=== PATIENT | female | born 1990 | race Caucasian/White ===

== ENCOUNTER 2019-04-22 14:18 | Inpatient (IN) | payer BC, OTHER ==
[2019-04-22 15:41] VITALS: BMI 35.0
[2019-04-22] MEDS ORDERED: NS / Oxytocin 40 units/1000ml 1,000 ML IV PRN (17:06)
[2019-04-22] MEDS ORDERED: Ondansetron PF 4 MG/2 ML Vial IVP PRN (17:06)
[2019-04-22] MEDS ORDERED: Lidocaine 1% (PF) 30 ML VIAL SC PRN (17:06)
[2019-04-22] MEDS ORDERED: hydrALAZINE 20 MG/ML VIAL SLOW IVP PRN (17:06)
[2019-04-22] MEDS ORDERED: Promethazine HCl 25 MG/ML VIAL IM PRN (17:06)
[2019-04-22] MEDS ORDERED: Ibuprofen 800 MG TAB PO PRN (17:06)
[2019-04-22] MEDS ORDERED: Carboprost 250 MCG/ML AMP IM PRN (17:06)
[2019-04-22] MEDS ORDERED: HYDROcodone/Acetaminophen 5/325 mg Tablet PO PRN ×2 (17:06)
[2019-04-22] MEDS ORDERED: Diphenoxylate HCl/Atropine Tablet PO PRN ×2 (17:06)
[2019-04-22 17:40] LABS: Hemoglobin 13.8 g/dL (12.0-16.0); Mean Corpuscular HGB CONC 33.7 g/dL (32.0-36.0); Mean Corpuscular Hemoglobin 30.2 pg (27.0-31.0); Mean Corpuscular Volume 89.4 fL (78.0-98.0); Mean Platelet Volume 9.5 fL (7.4-10.4); Platelet Count 187 thou/uL (130-400); RBC Distribution Width 13.6 % (11.5-14.5); Red Blood Cell (RBC) Count 4.58 mill/uL (4.20-5.40)
[2019-04-22 17:53] LABS: ALT (SGPT) 19 U/L (8-55); AST (SGOT) 16 U/L (5-34); Albumin 3.4 g/dL (3.5-5.0); Alkaline Phosphatase 142 U/L (40-150); Anion Gap 12 mmol/L (10-20); BUN (Urea Nitrogen) 7 mg/dL (7.0-18.7); Bilirubin, Total 0.6 mg/dL (0.2-1.2); Calc. Creatinine Clearance 175 mL/min (70-130); Calcium 9.1 mg/dL (7.8-10.44); Carbon Dioxide 21 mmol/L (22-29); Chloride 107 mmol/L (98-107); Estimated GFR-MDRD Greater than 90; Globulin 2.2 g/dL (2.4-3.5); Glucose 79 mg/dL (70-105); Potassium 4.2 mmol/L (3.5-5.1); Protein, Total 5.6 g/dL (6.0-8.3); Sodium 136 mmol/L (136-145)
[2019-04-22 18:11] LABS: HBSAg Index 0.14 S/CO (0-0.99); Hep B Surf Ag Non-Reactive S/CO (NonReactive)
[2019-04-22 18:19] LABS: Syphilis Antibody Nonreactive (Nonreactive); Syphilis Antibody Index 0.03 S/CO (<1.00 Non-Reactive)
[2019-04-22] MEDS: Lactated Ringer's 1,000 ML IV SCH ×2 (19:06→23:15)
[2019-04-22] MEDS: Misoprostol 100 MCG TAB PO SCH ×2 (20:16→20:17)
[2019-04-22] MEDS ORDERED: Bupivacaine PF 0.5% 30 ML VIAL ONE (23:00)
[2019-04-22] MEDS ORDERED: Bupivacaine/Epinephrine 0.25% 30 ML VIAL ONE (23:00)
[2019-04-23] MEDS: Misoprostol 100 MCG TAB PO SCH ×3 (00:10→14:29)
[2019-04-23] MEDS ORDERED: Lidocaine 1.5%/Epinephrine 1:200,000 5 ML AMPUL IJ ONE (06:07)
[2019-04-23] MEDS ORDERED: Fentanyl 4 mcg/Bup 0.1% Cadd 100 ML ONE ×3 (06:07→20:18)
[2019-04-23] MEDS ORDERED: Fentanyl 100 MCG/2 ML VIAL ONE ×2 (06:16→21:26)
[2019-04-23] MEDS: Lactated Ringer's 1,000 ML IV SCH ×2 (06:25→14:19)
[2019-04-23] MEDS ORDERED: Lactated Ringer's 500 ML IV PRN (06:58)
[2019-04-23] MEDS ORDERED: ePHEDrine/0.9% NaCl/PF SYRINGE 50 mg/10 ml SLOW IVP PRN (06:58)
[2019-04-23] MEDS ORDERED: Ondansetron PF 4 MG/2 ML Vial IVP PRN ×2 (06:58→22:20)
[2019-04-23] MEDS ORDERED: Acetaminophen 325 MG TAB PO PRN (06:58)
[2019-04-23] MEDS ORDERED: Naloxone HCl 0.4 mg/ml Vial IVP PRN ×4 (06:58→22:20)
[2019-04-23] MEDS ORDERED: diphenhydrAMINE 50 MG/ML VIAL IVP PRN ×2 (06:58→22:20)
[2019-04-23] MEDS ORDERED: Promethazine HCl 25 MG/ML VIAL IM PRN ×2 (06:58→22:20)
[2019-04-23] MEDS ORDERED: Communication Order-Pharmacy FS SCH ×2 (07:00→22:30)
[2019-04-23] MEDS ORDERED: Fentanyl 4 mcg/Bupivacaine 0.1% Cassette 100 ML EPIDURAL SCH (07:00)
--- NOTE | 2019-04-23 07:14 | PDOC.LDHP ---
Labor and Delivery H&P Chief complaint: scheduled induction HPI: Patient presented at office for routine care. her BP was noted at 140/ 90 and patient was reporting a headache. Her cervical exam was unfavorable for IOL, so 5 diliapan were placed into the cervical OS using ring forceps and a tenaculum. Pt tolerated well. She was then instructed to go to L&D for IOL due to suspected GHTN. Current gestational age (weeks): 40 (and 3 days) Due date: 04/19/19 Dating criteria: last menstrual period (and verified with 1st trimester US) Grav: 1 Para: 0 Current complications: other ( mediated autoimmune rash. Syncope - cleared by cardiology with halter monitor or echo Shingles - resolved as on 03/12/19) Abnormal US findings: No Current medications: pre-vandana vitamins Previous surgical history: other (Tonsillectomy, mouth surgery) Allergies/Adverse Reactions: Allergies Allergy/AdvReac Type Severity Reaction Status Date / Time No Known Allergies Allergy Verified 04/22/19 15:39 Social history: none - Physical Exam Vital signs reviewed and normal: yes General: NAD Heart: RRR Lungs: nonlabored breathing Abdomen: gravid Extremeties: pitting edema FHT: category 1 - Vaginal Exam cm dilated: 3 Effacement: 50% Station: -3 - OB Labs Blood type: A RH: positive Antibody Screen: negative HIV: negative RPR: negative HEPSAg: negative 1 hour GCT: negative GBS: negative Urine drug screen: negative Rubella: immune - Assessment L&D Assessment: medically indicated induction (for suspected GHTN) - Plan Plan: admit to L&D, cervical ripening (with oral cytotec 50mcg Q4hrs)
[2019-04-23] MEDS ORDERED: NS w/ Oxytocin 10 units 500 ML ONE (07:41)
[2019-04-23] MEDS ORDERED: NS w/ Oxytocin 10 units 500 ML IV SCH (08:15)
--- NOTE | 2019-04-23 08:16 | PDOC.LDPN ---
Labor & Delivery Progress Note - Subjective Subjective: comfortable (with epidural) - Objective Vital signs reviewed and normal: yes General: resting Uterine fundus: non tender Dilation: 3 Effacement: 50% Station: -2 FHT: category 1 Corwith contractions every: 3-5 - Assessment (1) Elective induction of labor planned Code(s): ADD1900 - Current Visit: Yes Status: Acute Plan: labor augmentation, pitocin for augmentation
[2019-04-23] MEDS ORDERED: Ondansetron PF 4 MG/2 ML Vial ONE ×2 (09:31→21:27)
[2019-04-23] MEDS ORDERED: Ketorolac Tromethamine 30 MG/ML VIAL ONE ×2 (09:31→21:27)
[2019-04-23] MEDS ORDERED: Dexamethasone 20 MG/5 ML VIAL ONE (09:31)
[2019-04-23] MEDS ORDERED: Lidocaine 1% (PF) 30 ML VIAL ONE (12:43)
[2019-04-23] MEDS ORDERED: NS / Oxytocin 40 units/1000ml 1,000 ML ONE (12:43)
[2019-04-23] MEDS ORDERED: Bicitra 30 ML UDCUP ONE (21:11)
--- NOTE | 2019-04-23 21:22 | PDOC.EVN ---
Event Note - Event Note Event Note: [facility] Preop CS note: Asked to eval the patient in LDR2 for prolonged second stage, arrest of descent. Pushing for 3 hrs. REMINGTON in use. I examined the patient myself: Exam C/C/+1 with some caput at +2 The head is firmly applied against the pubic symphisis (narrow pubic arch). Due to station at +1 and narow pubic arc, I do not feel a vaccumm attempt is the safest at this time. I reviewed need for C-sectio with her and her family. We will proceed with a primary CS for the above reasons. Anesthesia called and here. DX: Prolonged second stage Arrest of descent Narrow opubic arch (deeply impacted head)
[2019-04-23] MEDS ORDERED: ePHEDrine/0.9% NaCl/PF SYRINGE 50 mg/10 ml ONE (21:27)
[2019-04-23] MEDS ORDERED: Oxytocin 10 UNITS/ML VIAL ONE ×2 (21:27→22:16)
[2019-04-23] MEDS ORDERED: Dexamethasone 4 mg/ml Vial ONE (21:27)
[2019-04-23] MEDS ORDERED: PHENYLEPHRINE-NS 100 MCG/ML 10 ML SYRINGE ONE (21:28)
[2019-04-23] MEDS ORDERED: Azithromycin 500 MG VIAL ONE (21:29)
[2019-04-23] MEDS ORDERED: MORPHINE 5 MG/10 ML PF VIAL ONE (22:05)
[2019-04-23] MEDS ORDERED: Midazolam HCl 2 mg/2 ml Vial ONE (22:08)
[2019-04-23] MEDS ORDERED: Ketorolac Tromethamine 30 MG/ML VIAL IVP PRN (22:20)
[2019-04-23] MEDS ORDERED: L&D-Morphine 4 MG/ML VIAL SLOW IVP PRN (22:20)
[2019-04-23] MEDS ORDERED: Ondansetron HCl/PF 4 MG/2 ML Vial IVP PRN (22:20)
[2019-04-23] MEDS ORDERED: HYDROmorphone 2 MG/ML VIAL SLOW IVP PRN (22:20)
[2019-04-23] MEDS ORDERED: Promethazine HCl 25 MG SUPP PR PRN (22:20)
[2019-04-23] MEDS ORDERED: Naloxone HCl 0.4 mg/ml Vial IV PRN (22:20)
[2019-04-23] MEDS ORDERED: Meperidine HCl/PF 25 MG/ML VIAL SLOW IVP PRN (22:20)
--- NOTE | 2019-04-23 22:25 | PDOC.OPDEL ---
OB Operative/Delivery Note Delivery Dr/Surgeon: Deborah Assist: Light Pre-Delivery Diagnosis: arrest of dilation (arrest of descent in second stage), medically indicated induction Procedure/Post Delivery Dx: primary low transverse CS Weeks gestation: 40 Anesthesia: epidural - Findings A Sex: male Weight: 7 lb 12 oz - 1 min: 8 - 5 min: 8 - Additional Findings/Plan Placenta delivered: manual removal findings: low transverse hysterotomy without extension Estimated blood loss: 450 Post delivery plan: routine recovery
[2019-04-23] MEDS ORDERED: HYDROcodone/Acetaminophen 5/325 mg Tablet PO PRN (22:28)
[2019-04-23] MEDS ORDERED: hydrALAZINE 20 MG/ML VIAL SLOW IVP PRN (22:28)
[2019-04-23] MEDS ORDERED: Lanolin Ointment 7 GM TUBE TOP PRN (22:28)
[2019-04-23] MEDS ORDERED: diphenhydrAMINE 25 MG CAP PO PRN (22:28)
[2019-04-23] MEDS ORDERED: Misoprostol 200 MCG TAB PR PRN (22:28)
[2019-04-24] MEDS ORDERED: Methylergonovine 0.2 MG/ML VIAL IM PRN (01:05)
[2019-04-24] MEDS ORDERED: hydrALAZINE 20 MG/ML VIAL SLOW IVP PRN (01:05)
[2019-04-24] MEDS ORDERED: Ondansetron PF 4 MG/2 ML Vial IVP PRN (01:05)
[2019-04-24] MEDS ORDERED: NS / Oxytocin 40 units/1000ml 1,000 ML IV SCH (01:05)
[2019-04-24] MEDS ORDERED: CEFAZOLIN 2 GM in Premix Bag 1 BAG IVPB SCH (01:05)
[2019-04-24] MEDS ORDERED: Misoprostol 200 MCG TAB VAG PRN (01:05)
[2019-04-24] MEDS ORDERED: Bicitra 30 ML UDCUP PO SCH (01:05)
[2019-04-24] MEDS ORDERED: Milk Of Magnesia 30 ML UDCUP PO PRN (01:05)
[2019-04-24] MEDS ORDERED: Bisacodyl 10 MG SUPP PR PRN (01:05)
--- NOTE | 2019-04-24 02:03 | OP ---
DATE OF PROCEDURE: 04/23/2019 PREOPERATIVE DIAGNOSES: 1. A 28-year-old white female, G1, P0, 40 to 41 weeks, status post labor induction. 2. Mild gestational hypertension. 3. Failure to descend, progress in 2nd stage, but prolonged 2nd stage. POSTOPERATIVE DIAGNOSES: 1. A 28-year-old white female, G1, P0, 40 to 41 weeks, status post labor induction. 2. Mild gestational hypertension. 3. Failure to descend, progress in 2nd stage, but prolonged 2nd stage. PROCEDURE PERFORMED: Primary low transverse section without extension. ASSISTANCE SURGEON: Sarah Emery CNM. ANESTHESIA: Epidural. ESTIMATED BLOOD LOSS: Approximately 450 mL. COMPLICATIONS: None. COUNTS: Correct x2. ANTIBIOTICS: 2 g Ancef and Zithromax per protocol. FINDINGS: 1. Vigorous male , vertex presentation, notable caput. Apgars 8 and 8. weight 7 pounds 12 ounces. 2. Normal-appearing uterus, fallopian tubes, and ovaries. 3. Clear urine present in Figueroa catheter postprocedure. PATHOLOGY: Placenta. COUNTS: Correct x2. DISPOSITION: Recovery room. DESCRIPTION OF PROCEDURE: The patient previously received informed consent in regard to surgery. She was taken back to the operating room, where she received adequate dosing of her epidural. She was placed in the supine position, prepped and draped in usual sterile fashion. A Pfannenstiel incision was made in the lower abdomen, it was carried down the fascia. Fascia was nicked in the midline. Fascial incision was extended bilaterally with the use of curved Sánchez scissors. The rectus fascia was then incised, dissected superiorly and inferiorly off the rectus muscle bellies. The peritoneal rectus muscle bellies were divided in midline. Peritoneal cavity was entered. An Gonzales O retractor was placed. A bladder flap was created in usual fashion. A 2 cm hysterotomy incision was made in the lower uterine segment. This was extended via finger fractionation. The baby was delivered in the vertex presentation. Mouth and nares were bulb suctioned on the abdomen. The cord was doubly clamped and cut and handed to the pediatric team in attendance. Usual cord blood was obtained. The placenta was manually extracted and uterus was externalized. The uterus was cleaned of any remaining placental fragments with dry laparotomy sponge and ring forceps. The hysterotomy incision was then inspected and no extensions were noted. The hysterotomy incision was closed in a running locking fashion with #1 Monocryl suture. Hemostasis was confirmed. The uterus had been placed back in the abdomen during the hysterotomy closure. The pelvis was then irrigated and suctioned. Hemostasis again was confirmed. The rectus muscle bellies were then inspected after the Gonzales O retractor was removed. Hemostasis on the rectus muscle bellies were confirmed. The fascia was then closed with 0 PDS suture x2 in a running continuous fashion. Subcutaneous tissue was irrigated, noted to be hemostatic prior to approximation with 3-0 plain gut suture. A 4-0 subcuticular skin closure was then performed. Hemostasis was confirmed. The patient was then transferred to recovery room in stable condition. Job ID: [id number]
[2019-04-24 05:21] LABS: Hemoglobin 11.2 g/dL (12.0-16.0); Mean Corpuscular HGB CONC 34.1 g/dL (32.0-36.0); Mean Corpuscular Hemoglobin 30.4 pg (27.0-31.0); Mean Corpuscular Volume 89.1 fL (78.0-98.0); Mean Platelet Volume 8.9 fL (7.4-10.4); Platelet Count 170 thou/uL (130-400); RBC Distribution Width 13.5 % (11.5-14.5); White Blood Cell (WBC) Count 18.5 thou/uL (4.8-10.8)
[2019-04-24] MEDS: Ibuprofen 800 MG TAB PO SCH ×6 (07:28→21:11)
[2019-04-24] MEDS: Docusate Calcium (SURFAK) 240 MG CAP PO SCH ×3 (07:36→21:11)
[2019-04-24] MEDS: Prenatal Vitamin 1 TAB PO SCH (07:37)
[2019-04-24] MEDS: Ferrous Sulfate 325 MG TAB PO SCH ×2 (07:37→20:46)
--- NOTE | 2019-04-24 08:18 | PDOC.PP ---
Post Progress Note Post Day #: bABY ON cpap IN nicu PO intake tolerated: yes Flatus: yes Ambulation: yes Vital Signs (12 hours) Temp Pulse Resp BP Pulse Ox 04/24/19 03:32 98.2 F 68 18 120/81 04/24/19 02:30 98.1 F 77 18 125/74 96 04/24/19 01:30 98.3 F 92 20 132/71 96 Weight Weight 198 lb - Physical Examination Skin: CS incision dry & intact, no rash Result Diagrams: 04/24/19 04:57 04/22/19 17:29 Additional Labs: Post Labs Blood Type A POSITIVE 04/22/19 17:29 Hep Bs Antigen Non-Reactive S/CO (NonReactive) 04/22/19 17:29 - Assessment/Plan pOST OP DAY 0-1. PRIMARY C/S FOR FAILURE TO DESCEND. HEMODYNAMICALLY STABLE. ROUTINE POST OP CARE.
[2019-04-24] MEDS ORDERED: Adacel (T-DAP) 0.5 ML SYRINGE IM ONE (09:00)
[2019-04-24] MEDS ORDERED: Prenatal Vitamin 1 TAB PO SCH (09:00)
[2019-04-24] MEDS: Misoprostol 100 MCG TAB PO SCH (09:40)
[2019-04-24] MEDS ORDERED: HYDROcodone/Acetaminophen 5/325 mg Tablet PO PRN (11:30)
[2019-04-24] MEDS: HYDROcodone/Acetaminophen 5/325 mg Tablet PO PRN ×2 (13:18→19:43)
[2019-04-24] MEDS: Simethicone Chewable 80 MG TAB PO PRN (19:43)
[2019-04-25] MEDS: Docusate Calcium (SURFAK) 240 MG CAP PO SCH ×3 (02:57→21:39)
[2019-04-25] MEDS: Ibuprofen 800 MG TAB PO SCH ×4 (02:57→21:41)
[2019-04-25] MEDS: HYDROcodone/Acetaminophen 5/325 mg Tablet PO PRN ×2 (07:10→17:48)
--- NOTE | 2019-04-25 09:15 | PDOC.PP ---
Post Progress Note Post Day #: 2 PO intake tolerated: yes Flatus: yes Ambulation: yes Vital Signs (12 hours) Temp Pulse Resp BP 04/25/19 05:10 97.7 F 76 16 135/76 04/25/19 00:30 98.4 F 81 16 117/59 L Weight Weight 198 lb Result Diagrams: 04/24/19 04:57 04/22/19 17:29 Additional Labs: Post Labs Blood Type A POSITIVE 04/22/19 17:29 Hep Bs Antigen Non-Reactive S/CO (NonReactive) 04/22/19 17:29 - Assessment/Plan Post opd ay 2 from primary c/s for failure to descend. Tolerating diet. Ambulating and voiding. baby is getting weaned off CPAP. PLAN FOR DISCHARGE TOMORROW WITH b&b.
[2019-04-25] MEDS: Ferrous Sulfate 325 MG TAB PO SCH ×2 (09:39→17:02)
[2019-04-25] MEDS: Prenatal Vitamin 1 TAB PO SCH (11:17)
[2019-04-25] MEDS: Simethicone Chewable 80 MG TAB PO PRN ×2 (12:33→17:48)
--- NOTE | 2019-04-26 06:29 | PDOC.PP ---
Post Progress Note Post Day #: 3 Subjective: Patient doing well. No significant overnight events. Patient has been visiting infant in NICU. She does endorse lower extremity swelling which is worse this morning. She denies headache, vision changes, RUQ abdominal pain. BP's have been well controlled. Last BP elevated at 141/75. Patient reports she had just gotten back from visiting her in the NICU when BP was taken. Vital Signs (12 hours) Temp Pulse Resp BP Pulse Ox 04/25/19 19:29 98.7 F 87 12 141/75 H 98 Weight Weight 89.811 kg - Physical Examination General: NAD Cardiovascular: RRR Deviation from normal: 2+ lower extremity edema to level of calf Respiratory: non-labored breathing Abdominal: + bowel sounds, lochia (Minimal), no distention, appropriately TTP Fundus firm & at: below umbilicus Extremities: negative homans (B) Skin: CS incision dry & intact, no rash Neurological: no gross focal deficits Psychiatric: A&Ox3, normal affect Result Diagrams: 04/24/19 04:57 04/22/19 17:29 Additional Labs: Post Labs Blood Type A POSITIVE 04/22/19 17:29 Hep Bs Antigen Non-Reactive S/CO (NonReactive) 04/22/19 17:29 (1) delivery delivered Code(s): O82 - ENCOUNTER FOR DELIVERY WITHOUT INDICATION Status: Acute (2) Gestational hypertension Code(s): O13.9 - GESTATIONAL HTN W/O SIGNIFICANT PROTEINURIA, UNSP TRIMESTER Status: Acute - Assessment/Plan Routine PP care - POD #3 - s/p pLTCS - Rh pos, rubella imm - Encourage ambulation - Routine care gHTN - BP's well controlled PP - Last BP 141/75 after patient returned from visiting in NICU - Asymptomatic Dispo: Plan for d/c home tomorrow.
[2019-04-26] MEDS: Ibuprofen 800 MG TAB PO SCH ×3 (06:31→21:50)
[2019-04-26] MEDS: HYDROcodone/Acetaminophen 5/325 mg Tablet PO PRN ×2 (06:32→12:43)
[2019-04-26] MEDS: Ferrous Sulfate 325 MG TAB PO SCH ×2 (07:34→16:31)
[2019-04-26] MEDS: Prenatal Vitamin 1 TAB PO SCH (09:41)
[2019-04-26] MEDS: Docusate Calcium (SURFAK) 240 MG CAP PO SCH ×2 (09:41→21:50)
--- NOTE | 2019-04-27 01:34 | PDOC.PP ---
Post Progress Note Post Day #: 4 Subjective: No overnight events. One elevated BP of 145/70. Pt denies LAYNE, vision changes, RUQ pain. Pain is well controlled with medications. PO intake tolerated: yes Flatus: yes Ambulation: yes Vital Signs (12 hours) Temp Pulse Resp BP Pulse Ox 04/26/19 20:50 98.2 F 72 20 145/70 H 98 04/26/19 17:00 98.3 F 76 18 129/75 97 Weight Weight 89.811 kg - Physical Examination General: NAD Cardiovascular: no m/r/g, RRR Respiratory: clear to auscultation bilaterally, non-labored breathing Abdominal: + bowel sounds, lochia (minimal), appropriately TTP Fundus firm & at: below umbilicus Skin: CS incision dry & intact Neurological: no gross focal deficits Psychiatric: A&Ox3, normal affect Result Diagrams: 04/24/19 04:57 04/22/19 17:29 Additional Labs: Post Labs Blood Type A POSITIVE 04/22/19 17:29 Hep Bs Antigen Non-Reactive S/CO (NonReactive) 04/22/19 17:29 - Assessment/Plan Term , delivered - POD #4 - s/p pLTCS - Countinue routine PP care - Plan to d/c home today gHTN - BP's well controlled PP - One elevated BP 145/70 overnight - Asymptomatic Mariann Carnes MD PGY-2 Pt was discussed with Dr Mayo who agrees with the above documentation and plan Addendum - Attending - Attending Attestation Date/Time: 04/27/19 0830 I personally evaluated the patient and discussed the management with Dr. Carnes. I agree with the Assessment and Plan documented above.
[2019-04-27] MEDS: Ibuprofen 800 MG TAB PO SCH (05:23)
[2019-04-27] MEDS: Ferrous Sulfate 325 MG TAB PO SCH (08:53)
[2019-04-27] MEDS: Prenatal Vitamin 1 TAB PO SCH (08:54)
[2019-04-27] MEDS: Docusate Calcium (SURFAK) 240 MG CAP PO SCH (08:54)
[2019-04-27] MEDS: HYDROcodone/Acetaminophen 5/325 mg Tablet PO PRN (09:13)
[2019-04-27 12:39] VITALS: BP 156/77; TEMP 98
== END 2019-04-27 13:05 | disposition home or self-care (01) | DRG 788 ==
LOC: L&D/OP 14:18 → L&D 16:46 → 3SW 04-24 01:54
PROVIDERS: ADMIT Obstetrics & Gynecology; ATTEND Obstetrics & Gynecology
PROC: 10D00Z1 Extraction of Products of Conception, Low, Open Approach (ICD-10-PCS; principal; 2019-04-23)
PROC: 3E0P7VZ Introduction of Hormone into Female Reproductive, Via Natural or Artificial Opening (ICD-10-PCS; 2019-04-23)
PROC: 3E033VJ Introduction of Other Hormone into Peripheral Vein, Percutaneous Approach (ICD-10-PCS; 2019-04-23)
DX: O13.4 Gestational [pregnancy-induced] hypertension without significant proteinuria, complicating childbirth (principal); Z3A.40 40 weeks gestation of pregnancy; O62.1 Secondary uterine inertia; O63.1 Prolonged second stage (of labor); Z37.0 Single live birth
CPT/HCPCS: 36415; 51702; 80053; 85027; 86780; 86850; 86900; 86901; 87340; 88307; J0456; J0690; J1100; J1885; J2001; J2250; J2274; J2405; J2590; J3010; J3490; S0020

== ENCOUNTER 2019-06-13 09:22 | Outpatient (CLI) | payer OTHER ==
--- NOTE | 2019-06-13 11:26 | ULT ---
LIMITED RIGHT BREAST ULTRASOUND: Date: 06/13/19 PROVIDED CLINICAL HISTORY: Right breast palpable abnormality. FINDINGS: Limited sonographic interrogation was performed at the 11 o'clock position of the right breast in the region of palpable concern. There is an oval, heterogeneously isoechoic circumscribed mass with well -defined margins and no posterior shadowing seen at the region of palpable concern. This measures abo ut 1.6 x 1.0 x 1.2 cm. IMPRESSION: Circumscribed mass without concerning sonographic features, possibly reflecting galactocele given the patient's status. Fibroadenoma is also possible. Other etiologies are not excluded, but a re felt less likely. 6 month follow-up right breast ultrasound is recommended. POS: OFF
== END 2019-06-13 09:23 | disposition home or self-care (01) ==
LOC: BICULT 09:22
PROVIDERS: ATTEND Advanced Practice Midwife
DX: N63.10 Unspecified lump in the right breast, unspecified quadrant (principal)

== ENCOUNTER → 2019-12-15 | Outpatient (CLI) | payer OTHER ==
--- NOTE | 2019-12-15 08:58 | MMO ---
Right US Breast Limited Rt. CLINICAL HISTORY: Patient is 29 years old and is seen for . VIEWS: The views performed were: . FILMS COMPARED: The present examination has been compared to a prior imaging study performed at [facility] on 06/13/2019. This study has been interpreted with the assistance of computer-aided detection. RIGHT BREAST ULTRASOUND FINDINGS: There is an oval hypoechoic mass at the 11 oclock position of the left breast, measuring approximately 8 mm. This is smoothly marginated but demonstrates shadowing. This presumably represents the same mass as comparison exam, having decreased in size. IMPRESSION: AREA IN THE RIGHT BREAST IS PROBABLY BENIGN. FOLLOW-UP IN 6 MONTHS IS RECOMMENDED. THE RESULTS OF THIS EXAM WERE SENT TO THE PATIENT. ACR BI-RADS Category 3 - Probably benign finding - short interval follow-up suggested. [facility] will notify the patient of the need for additional imaging services. MAMMOGRAPHY NOTE: 1. A negative mammogram report should not delay a biopsy if a dominant of clinically suspicious mass is present. 2. Approximately 10% to 15% of breast cancers are not detected by mammography. 3. Adenosis and dense breasts may obscure an underlying neoplasm. Reported by: NESS LINDSEY MD Electonically Signed: [id number]
== END ==
LOC: BICULT 08:45
PROVIDERS: ATTEND Advanced Practice Midwife
DX: N63.10 Unspecified lump in the right breast, unspecified quadrant (principal)

== ENCOUNTER 2020-06-15 09:42 | Outpatient (CLI) | payer OTHER ==
--- NOTE | 2020-06-15 10:21 | ULT ---
Exam: Right breast ultrasound Limited: Follow-up right breast mass COMPARISON: 06/13/2019, 12/15/2019 ultrasound FINDINGS: At the 11:00 position 4 cm from the nipple there appears to be a bilobed or more likely 2 hypoechoic solid-appearing masses. The more superficial one measures 0.4 x 0.3 x 0.5 cm and I feel corresponds to the previously noted superficial mass seen on the most recent prior exam at which time it measured 0.6 x 0.7 x 0.8 cm. On the 2 prior ultrasound exams I feel that this more superficial mass somewhat obscured the deeper portion of this mass and although it was present on the prior studies bu t not definitively noted and not mentioned sides. On today's study the deeper mass measures approximately 0.7 x 0.9 x 0.9 cm in retrospect on the most recent prior study this measured 1 cm in s ize. IMPRESSION: Definite decrease in the size of the previously noted somewhat more superficial mass at 11:00 4 cm fr om the nipple. Because of the decrease in this more superficial mass a slightly deeper mass is now noted which in retrospect was present and larger on the prior studies. I feel that it has also decrea sed in size. BI-RADS Category 3 probably benign findings. I would recommend another six-month follow-up breast ultrasound for further assessment and document e xpected continued size decrease. This was discussed with the patient who is in agreement.
== END 2020-06-15 09:43 | disposition home or self-care (01) ==
LOC: BICULT 09:42
PROVIDERS: ATTEND Advanced Practice Midwife
DX: N63.11 Unspecified lump in the right breast, upper outer quadrant (principal)

== ENCOUNTER 2020-12-15 08:33 | Outpatient (CLI) | payer OTHER | END 2020-12-15 08:34 | disposition home or self-care (01) | LOC: BICULT 08:33 | PROVIDERS: ATTEND Advanced Practice Midwife | DX: N63.10 Unspecified lump in the right breast, unspecified quadrant (principal) ==